=== PATIENT | female | born 1935 | race Caucasian/White ===

== ENCOUNTER 2016-12-15 19:49 | Observation (INO) ==
[2016-12-15] MEDS ORDERED: *HR* HYDROcodone/Acet 5/325 mg TABLET PO ONE (20:38)
--- NOTE | 2016-12-15 20:40 | Emergency Department Note ---
START Narrative - START START: I examined this patient and my medical decision-making was reviewed with the HEALTH CARE MARKETING SPECIALIST/PA/Advanced Practice Nurse/Resident Physician. I agree with the documented findings, disposition and treatment plan as described except to the extent set forth below. ED attending note: I saw this Patient with the emergency medicine resident Dr. Pickens. Please see a copy of his note for details of the H&P, evaluation, management and disposition of this emergency Department patient. We independently had [id number] contact with the patient. Briefly: A 81-year-old female with history of bilateral hip replacements presents with wheelchair after slip and fall about 5 PM at home using a walker. No loss of consciousness or syncope. Not on blood thinners. Complains of painful right hip but no hip irritability per psych no rotation or shortening noted. Getting analgesics and x-rays. Disposition pending. Patient stable
--- NOTE | 2016-12-15 20:44 | Emergency Department Note ---
Disposition Clinical Impression: Fracture, proximal femur Qualifiers: Encounter type: initial encounter Fracture type: closed Laterality: right Qualified Code(s): S72.001A - Fracture of unspecified part of neck of right femur, initial encounter for closed fracture Disposition: Admitted As Inpatient Condition: Good Referrals: NO,PCP [Primary Care Provider] - Forms: ED Satisfaction Letter Fall HPI - General Chief Complaint: ED Fall Stated Complaint: Fall / R Hip Pain Time Seen by Provider: 12/15/16 20:13 Source: patient Mode of arrival: wheelchair Limitations: physical limitation Nursing Notes Reviewed: Yes Vital Signs Reviewed: Yes - History of Present Illness HPI Narrative: 81-year-old female presents to the ER status post fall with a complaint of right hip pain Pt Subjective Complaint: fall Onset (ago): hour(s) (5 PM) Fall From: standing Fall Witnessed: no Place Fall Occurred: home Loss of Consciousness: none Prolonged Down Time?: no Symptoms Prior to Fall: none Context: tripped/slipped Location of injury: hip Location of injury - extremities: Right: hip Severity: moderate Quality: aching Associated symptoms (after fall): Reports: unable to walk. Denies: neck pain, numbness, weakness, abdominal pain - Related Data Home Medications Medication Instructions Recorded Confirmed Allopurinol [Zyloprim 100 MG] 100 mg PO DAILY 12/15/16 12/15/16 Aspirin Enteric Coated [Aspirin EC] 81 mg PO DAILY 12/15/16 12/15/16 Carvedilol 3.125 mg PO BID 12/15/16 12/15/16 ClonazePAM [Klonopin] 0.5 mg PO BID 12/15/16 12/15/16 Gabapentin [Neurontin] 600 mg PO TID 12/15/16 12/15/16 HYDROcodone/Acet 5/325 mg [[place] 1 tab PO Q6H PRN 12/15/16 12/15/16 5-325 mg] Insulin ASPART [Novolog Flexpen] 0 unit SQ TIDWM 12/15/16 12/15/16 Insulin DETEMIR [Levemir Flextouch] 0 unit SQ HS 12/15/16 12/15/16 Multivit-Minerals/Folic Acid 80 mcg PO DAILY 12/15/16 12/15/16 [Centrum Multigummies] Omeprazole [PriLOSEC] 20 mg PO DAILY 12/15/16 12/15/16 Pravastatin Sodium mg PO DAILY 12/15/16 Primidone [Mysoline] 50 mg PO BID 12/15/16 12/15/16 Probenecid [Benemid] 500 mg PO BID 12/15/16 12/15/16 Ticagrelor [Brilinta] 90 mg PO BID 12/15/16 12/15/16 Torsemide [Demadex] 20 mg PO DAILY 12/15/16 12/15/16 Venlafaxine HCl [Venlafaxine HCl 150 mg PO DAILY 12/15/16 12/15/16 ER] Allergies Allergy/AdvReac Type Severity Reaction Status Date / Time No Known Allergies Allergy Verified 12/15/16 20:11 All systems ED: reviewed and negative except as stated. Cardiovascular: Denies: chest pain Respiratory: Denies: dyspnea Gastrointestinal: Denies: abdominal pain Musculoskeletal: Denies: back pain, neck pain Neurological: Denies: weakness, numbness, paresthesias Fall PMH - Past Medical History Medical history: Reports: CHF, COPD, diabetes, hypertension, myocardial infarction Psychiatric history: Reports: depression - Social History Smoking Status: Never smoker Alcohol use: Reports: none Drug use: Reports: none Physical Exam - General Limitations: physical limitation General appearance: alert, in no apparent distress - Head Head exam: atraumatic, normocephalic, normal inspection - Eye Eye exam: Present: normal appearance - ENT ENT exam: normal exam - Neck Neck exam: Present: normal inspection - Chest Chest inspection: Present: normal inspection, symmetric chest wall rise - Respiratory Respiratory exam: Present: normal lung sounds bilaterally - Cardiovascular Cardiovascular exam: Present: regular rate, normal rhythm, normal heart sounds - Abdominal Exam Abdominal exam: Present: soft, Non-Tender. Absent: tenderness, rigidity - Extremities Exam Extremities exam: Present: normal inspection - Expanded Lower Extremity Exam Hip/Pelvis exam: Present: tenderness (Past palpation along the right lateral greater trochanter. No obvious gross deformity. No overlying ecchymosis or skin breakdown.) Upper leg exam: Present: normal inspection (She is able to internally and externally rotate the upper leg. However she is unable to flex the leg off the bed.) Knee exam: Present: normal inspection Lower leg exam: Present: normal inspection, full ROM Ankle exam: Present: normal inspection, full ROM Foot/toe exam: Present: normal inspection, full ROM Neurovascular/Tendon exam: Present: normal capillary refill, normal fine/light touch. Absent: pulse deficit, sensory deficit Gait: unable to bear weight - Neurological Exam Neurological exam: Present: alert, motor sensory deficit (Unable to flex the the right hip secondary to pain ) - Psychiatric Psychiatric exam: Present: normal affect, normal mood - Skin Skin exam: Present: warm, dry, intact, normal color Course Course Narrative: 81-year-old female history of hypertension, [place], bilateral hip replacements who presents to the ER with a chief complaint of hip pain status post fall. Patient reports she was at home and sustained a fall around 5 PM today. She walks with a walker and was leaning off to the right side when she fell. She denies loss of consciousness or head injury. Patient brought to the ED for evaluation. She currently denies numbness, tingling or paresthesias in the extremity. She is unable to flex the hip off the bed. She denies headaches, neck or back pain, chest or abdominal pain. She reports she took some Tylenol prior to arrival. No other complaints. Plan for this patient is to get x-ray series of the right hip and to get her pain under control with [place]. Disposition pending. - Reevaluation(s) Reevaluation #1: Discussed results of imaging with the patient and family. They report that she lives at home with her grandson but will be unable to care for her and she is unable to ambulate with this fracture. We will admit her to the hospital for further management. - Consultations Consultation #1: I discussed this patient with the on-call orthopedic surgeon. They report that this is a nonoperative fracture and that she may either be discharged if she can go home safely and follow up tomorrow with him in the office or if they are unable to care for her that she can be admitted to the hospital service and he will see her in the morning. Vital Signs Temperature 98.1 F 12/15/16 20:07 Pulse Rate 84 12/15/16 20:07 Respiratory Rate 18 12/15/16 20:07 Blood Pressure 144/79 12/15/16 20:07 O2 Sat by Pulse Oximetry 97 12/15/16 20:07 Temperature 98.1 F 12/15/16 20:07 Pulse Rate 84 12/15/16 20:07 Respiratory Rate 18 12/15/16 20:07 Blood Pressure 144/79 12/15/16 20:07 O2 Sat by Pulse Oximetry 97 12/15/16 20:07 Oxygen Delivery Oxygen Delivery Room Air Fall - [facility] Narrative Medical decision making narrative: 81-year-old female presents to the ER status post fall with right hip pain. Her x-rays here show a proximal femur fracture. Orthopedic surgery was contacted and report this is nonoperative however the patient is unable to walk or care for herself at home therefore she will be admitted and he will see her in consult in the morning. - Radiology Data Radiology results reviewed: Yes I reviewed the patient's radiology results. Hip X-Ray 12/15/16 20:37 IMPRESSION: Nondisplaced fracture proximal right femur marginating the hip arthroplasty component D/ / Inocente Hurst MD / Inocente Hurst MD Interpreting Provider: Inocente Hurst MD
[2016-12-16] MEDS ORDERED: Acetaminophen 325 MG TABLET PO PRN ×2 (01:24→02:25)
[2016-12-16] MEDS ORDERED: *HR* Morphine 2 MG/ML SYRINGE IVP PRN (01:24)
[2016-12-16] MEDS ORDERED: Ondansetron ODT 4 MG TAB.RAPDIS SL PRN (01:24)
[2016-12-16] MEDS ORDERED: Naloxone 0.4 MG/ML INJ IVP PRN (01:24)
[2016-12-16] MEDS ORDERED: *HR* Dextrose 50 % in Water (Syg) 50 ML SYRINGE IVP PRN (01:28)
[2016-12-16] MEDS ORDERED: Dextrose Gel 15 GM PO PRN ×2 (01:28)
[2016-12-16] MEDS ORDERED: D5% in Water 1,000 ML IV PRN (01:28)
[2016-12-16] MEDS ORDERED: Cholestyramine 4 GM POWD.PACK PO ONE ×2 (01:54→02:07)
[2016-12-16] MEDS ORDERED: *HR* Morphine 2 MG/ML SYRINGE ONE (02:07)
--- NOTE | 2016-12-16 02:34 | Internal Med History&Physical ---
<Sophie Tanner - Last Filed: 12/16/16 02:46> Date of Encounter: 12/16/16 Time of Encounter: 02:26 Assessment and Plan (1) Fracture, proximal femur Current visit: Yes Status: Acute Patient presents after ground level fall at home resulting in proximal femur fracture. X-ray showed a non-displaced right proximal femur fracture. One exam , motor and sensation grossly intact BL feet with palpable bilateral DP and PT pulses. Ortho consulted. This is a non-operable fracture. Patient has no help at home and is unable to take care of her self; family would like to discuss fpc care. 1. Consult placed to ortho 2. Pain management and supportive care 3. Consult to PT/OT 4. Consult to bilingual social worker Qualifiers: Encounter type: initial encounter Fracture type: closed Laterality: right Qualified Code(s): S72.001A - Fracture of unspecified part of neck of right femur, initial encounter for closed fracture (2) CHF (congestive heart failure) Current visit: Yes Status: Acute Patient with history of CHF on torsemide and carvedilol. Will continue home medications. 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 Will check glucose and put patient on sliding scale for insulin coverage. 1. Accucheck ACHS 2. Sliding scale TIDAC Qualifiers: Diabetes mellitus type: type 2 Diabetes mellitus complication status: with neurologic complications Diabetes mellitus complication detail: with unspecified neuropathy Diabetes mellitus assisted insulin use: with assisted use Qualified Code(s): E11.40 - Type 2 diabetes mellitus with diabetic neuropathy, unspecified; Z79.4 - joint terminal attack controller (current) use of insulin (4) Hx of myocardial infarction Current visit: Yes Status: Acute Patient with history of MD back in March 2016 on ASA and brilinta. Will continue home doses of antiplatelet medications. (5) DVT prophylaxis Current visit: Yes Status: Acute Heparin 5,000 Q8H for DVT prophylaxis. Internal Medicine - H&P: HPI Chief complaint: Fall at home Admitted From: Emergency Dept Plans for Post Hospital Care: Home History of present illness: Ms. Beasley is a 81 year old female with PMH of HTN, MD (March 2016), DM with diabetic neuropathy, COPD, CHF and hx of BL hip replacements. Patient brought to the ED after a ground level fall at home. She reports that she was using her walker to walk around her house as she normally dose. She then leaned to far to the right and fell on her right hip. She denies hitting her head or any loss of consciousness. Patient denies any preciptating symptoms including headache, dizziness/lightheadedness, shortnes of breath or chest pain. Currently patient reports pain in her right hip/leg. She denies any numbness or tingling of her feet. Remainder of ROS was negative. In the ED, patient was afebrile, vital signs within normal limits. X-ray showed a nondisplaced fracture of the proximal right femur. On-call orthopedist was consulted from the ED. He feels that the fracture is non- operative but agreed to consult - will see patient in the morning. On exam, patient is awake and alert, hard of hearing. Heart is regular rate and rhythm. Lungs clear to auscultation. Patient is able to wiggle bilateral toes and sensation is grossly intact. Bilateral DP and PT pulses palpable. Past Med Surg Social Fam HX - Past Medical History Medical history: arthritis, cancer, CHF, COPD, diabetes, hypertension, myocardial infarction Psychiatric history: anxiety, depression - Past Surgical History Surgical History: cholecystectomy, herniorrhaphy, hip replacement, hysterectomy - Social History Smoking Status: Never smoker Smokeless Tobacco Status: No Alcohol use: none Drug use: none - Family History Father Living Status: Age at : 69 Cause of : diabetes, cardiac Hx Family Cardiac Disorders: Yes Hx Family Endocrine Disorder: Yes (diabetic) Mother Living Status: Age at : 81 Cause of : ruptured bowel blockage Hx Family Endocrine Disorder: Yes (diabetes) Hx Family Reproductive Disorders: Yes (uterine ca) Internal Medicine - H&P: Meds Allopurinol [Zyloprim 100 MG] 100 mg PO DAILY 12/15/16 [History] Aspirin Enteric Coated [Aspirin EC] 81 mg PO DAILY 12/15/16 [History] Carvedilol 3.125 mg PO BID 12/15/16 [History] Cholestyramine [Cholestyramine] 1 PO HS 12/15/16 [History] ClonazePAM [Klonopin] 0.5 mg PO BID 12/15/16 [History] Gabapentin [Neurontin] 600 mg PO TID 12/15/16 [History] HYDROcodone/Acet 5/325 mg [[place] 5-325 mg] 1 tab PO Q6H PRN 12/15/16 [History] Insulin ASPART [Novolog Flexpen] 0 unit SQ TIDWM 12/15/16 [History] Insulin DETEMIR [Levemir Flextouch] 0 unit SQ HS 12/15/16 [History] Multivit-Minerals/Folic Acid [Centrum Multigummies] 80 mcg PO DAILY 12/15/16 [ History] Omeprazole [PriLOSEC] 20 mg PO DAILY 12/15/16 [History] Pravastatin Sodium mg PO DAILY 12/15/16 [History] Primidone [Mysoline] 50 mg PO BID 12/15/16 [History] Probenecid [Benemid] 500 mg PO BID 12/15/16 [History] Ticagrelor [Brilinta] 90 mg PO BID 12/15/16 [History] Torsemide [Demadex] 20 mg PO DAILY 12/15/16 [History] Venlafaxine HCl [Venlafaxine HCl ER] 150 mg PO DAILY 12/15/16 [History] Allergies No Known Allergies Allergy (Verified 12/15/16 20:11) All Systems PM: A 10-system review of systems was performed and is negative for pertinent findings except as documented above in the HPI. - Constitutional Constitutional: falls, no chills, no fever(s) - EENT Eyes: no change in vision - Cardiovascular Cardiovascular ROS IM: no chest pain, no irregular heart rhythm, no palpitations - Respiratory Respiratory: no dyspnea, no dyspnea on exertion, no wheezing - Gastrointestinal Gastrointestinal: no abdominal pain, no nausea, no vomiting - Genitourinary Genitourinary: no change in urinary stream, no dysuria - Musculoskeletal Musculoskeletal ROS IM: no numbness, no tingling Additional comments: right hip/leg pain - Neurological Neurological ROS: no confusion, no dizziness, no headache(s), no lack of coordination, no weakness - Constitutional Vitals: Temp Pulse Resp BP Pulse Ox 98.2 F 80 16 155/78 94 L 12/16/16 00:22 12/16/16 00:22 12/16/16 00:22 12/16/16 00:22 12/16/16 00:22 General appearance: Present: A&O X 3, pleasant, no acute distress, answers questions appropriately - Head Head exam: Present: atraumatic, normal inspection, normocephalic - Eye Eye exam: Present: normal appearance, PERRL - ENT ENT exam: Present: mucous membranes moist - Respiratory Respiratory exam: Present: CTAB. Absent: decreased breath sounds, respiratory distress - Cardiovascular Cardiovascular exam: Present: RRR - GI/Abdominal GI/Abdominal exam: Present: soft. Absent: distended, guarding, rebound, rigid, tenderness - Extremities Exam Extremities exam: Present: normal capillary refill, radial pulses palpable and symetrical. Absent: cyanotic, mottling - Neurological Exam Neurological exam: Present: alert, CN II-XII intact, oriented X3, no focal deficits <Monalisa Syed - Last Filed: 12/16/16 04:52> Date of Encounter: 12/16/16 Internal Medicine - H&P: HPI History of present illness: Ms. Beasley is a 81 year old female All Systems PM: A 10-system review of systems was performed and is negative for pertinent findings except as documented above in the HPI. - Constitutional Vitals: Temp Pulse Resp BP Pulse Ox 98.3 F 80 16 147/72 94 L 12/16/16 04:00 12/16/16 04:00 12/16/16 04:00 12/16/16 04:00 12/16/16 04:00 - Attending Attestation I performed a history and physical examination of the patient and discussed his management with the Resident/Puppet Master (Dr Tanner). I reviewed the residents note and agree with the documented findings and plan of care, with additions as below. 81 Y/F with h/o HTN, MD (March 2016), DM with diabetic neuropathy, COPD, CHF and h/o bilateral hip replacements - presented to the emergency department after a fall, without LOC. Reports pain at the right hip, which is 9/10 at the time of my evaluation. Imaging showed nondisplaced fracture of proximal right femur marginating the hip arthroplasty component. ER physician discussed with orthopedic surgeon Dr. Mayers, who recommends non-surgical management at this time and admission to the hospitalist service. O/E: Lungs clear to auscultation. Cardiac regular rate and rhythm. Tenderness at the right hip A/P: Fracture of right proximal femur: Orthopedic consultation, pain management. PT/OT consult; possible placement.
[2016-12-16] MEDS ORDERED: *HR* Heparin 5,000 UNIT/ML VIAL SQ SCH (03:00)
[2016-12-16 05:47] LABS: Hematocrit 34.1 % (35.3-44.9); Hemoglobin 11.5 g/dL (11.5-15.4); Mean Corpuscular HGB Conc 33.7 g/dL (31.6-35.5); Mean Corpuscular Hemoglobin 32.2 pg (28.0-33.3); Mean Corpuscular Volume 95.5 fL (83.0-100.0); Mean Platelet Volume 11.1 fL (9.4-12.4); Platelet Count 183 K/mcL (140-400); Red Blood Count 3.57 M/mcL (3.82-4.97); Red Cell Distribution Width 12.9 % (11.5-14.5)
[2016-12-16] MEDS: *HR* HYDROcodone/Acet 5/325 mg TABLET PO PRN ×3 (05:51→16:45)
[2016-12-16 05:56] LABS: INR 1.1; Prothrombin Time 11.8 Seconds (9.4-12.1)
[2016-12-16 06:16] LABS: Alanine Aminotransferase 29 Units/L (0-55); Albumin/Globulin Ratio 0.8 (1.1-2.2); Alkaline Phosphatase 159 Units/L (38-126); Aspartate Amino Transferase 25 Units/L (5-34); BUN/Creatinine Ratio 19 (6-26); Bilirubin,Total 0.4 mg/dL (0.2-1.2); Blood Urea Nitrogen 19 mg/dL (7-20); Calcium 9.4 mg/dL (8.6-10.8); Carbon Dioxide 21 mEq/L (19-29); Chloride 105 mEq/L (98-109); Glucose 168 mg/dL (70-99); Osmolality,Calculated 292 (280-300); Potassium 3.9 mEq/L (3.5-4.5); Sodium 138 mEq/L (136-145); eGFR For African Americans > 60 (> 60); eGFR For Non-African Americans 53 (> 60)
--- NOTE | 2016-12-16 07:53 | Orthopedic Consult Note ---
Date of Encounter: 12/16/16 Time of Encounter: 07:51 Assessment and Plan (1) Fracture, proximal femur Current Visit: Yes Status: Acute This patient is an 81-year-old female with a history of bilateral hip replacements. She had a fall yesterday and sustained a nondisplaced right greater trochanteric fracture around her well fixed stem. I did discuss the diagnosis in detail as well as treatment options. My recommendation at this point is for nonweightbearing to the right lower extremity for about 4-6 weeks with careful radiographic follow-up and nonoperative management. My suspicion is that the fracture will heal without displacement, however should there be displacement she may end up requiring open reduction and internal fixation of the greater trochanter. She is orthopedically stable for discharge. My recommendation is to have physical therapy and occupational therapy evaluate her here in the hospital to discuss placement, as she may need retirement facility with therapy. Follow-up with me in the office in one week for radiographic reevaluation. Qualifiers: Encounter type: initial encounter Fracture type: closed Laterality: right Qualified Code(s): S72.001A - Fracture of unspecified part of neck of right femur, initial encounter for closed fracture History of Present Illness HPI: Ms. Beasley is a 81 year old female who has a history of bilateral total hip replacements done by an orthopedist at [facility]. She had been doing reasonably well but yesterday was ambulating with her walker when she sustained a fall directly on her right side. She is found to have a nondisplaced greater trochanteric fracture around her well fixed stem. She was admitted for placement. On my evaluation today she is complaining of isolated pain to the right proximal femoral region. She denies any headaches, neck pain , chest pain, abdominal pain, lateral proximity pain, and left largely pain. No numbness, tingling, or any other associated signs or symptoms. Movement makes the pain worse and rest makes it better. No other modifying factors. The pain is quite well-controlled when she is not moving. Past Med Surg Social Fam HX - Past Medical History Medical history: arthritis, cancer, CHF, COPD, diabetes, hypertension, myocardial infarction Psychiatric history: anxiety, depression - Past Surgical History Surgical History: cholecystectomy, herniorrhaphy, hip replacement, hysterectomy - Social History Smoking Status: Never smoker Smokeless Tobacco Status: No Alcohol use: none Drug use: none - Family History Father Living Status: Age at : 69 Cause of : diabetes, cardiac Hx Family Cardiac Disorders: Yes Hx Family Endocrine Disorder: Yes (diabetic) Mother Living Status: Age at : 81 Cause of : ruptured bowel blockage Hx Family Endocrine Disorder: Yes (diabetes) Hx Family Reproductive Disorders: Yes (uterine ca) Medications and Allergies Allopurinol [Zyloprim 100 MG] 100 mg PO DAILY 12/15/16 [History] Aspirin Enteric Coated [Aspirin EC] 81 mg PO DAILY 12/15/16 [History] Carvedilol 3.125 mg PO BID 12/15/16 [History] Cholestyramine [Cholestyramine] 1 PO HS 12/15/16 [History] ClonazePAM [Klonopin] 0.5 mg PO BID 12/15/16 [History] Gabapentin [Neurontin] 600 mg PO TID 12/15/16 [History] HYDROcodone/Acet 5/325 mg [[place] 5-325 mg] 1 tab PO Q6H PRN 12/15/16 [History] Insulin ASPART [Novolog Flexpen] 0 unit SQ TIDWM 12/15/16 [History] Insulin DETEMIR [Levemir Flextouch] 0 unit SQ HS 12/15/16 [History] Multivit-Minerals/Folic Acid [Centrum Multigummies] 80 mcg PO DAILY 12/15/16 [ History] Omeprazole [PriLOSEC] 20 mg PO DAILY 12/15/16 [History] Pravastatin Sodium mg PO DAILY 12/15/16 [History] Primidone [Mysoline] 50 mg PO BID 12/15/16 [History] Probenecid [Benemid] 500 mg PO BID 12/15/16 [History] Ticagrelor [Brilinta] 90 mg PO BID 12/15/16 [History] Torsemide [Demadex] 20 mg PO DAILY 12/15/16 [History] Venlafaxine HCl [Venlafaxine HCl ER] 150 mg PO DAILY 12/15/16 [History] Allergies No Known Allergies Allergy (Verified 12/15/16 20:11) All Systems Reviewed: Constitutional and musculoskeletal systems were reviewed and are negative unless otherwise stated in history of present illness. Physical Exam - Constitutional Vitals: Temp Pulse Resp BP Pulse Ox 98.5 F 84 16 144/76 96 12/16/16 06:33 12/16/16 06:33 12/16/16 06:33 12/16/16 06:33 12/16/16 06:33 Constitutional -Vitals reviewed -The patient is well developed and well nourished. -Mood is pleasant. -The patient is well groomed. Psychiatric -The patient is fully alert and oriented x 3. Respiratory: -Respiratory effort normal Abdomen: -Soft abdomen -Non tender -Non distended: Left upper extremity: -No deformities. The overlying skin is intact. No obvious signs of acute trauma. -No tenderness to palpation throughout. -No significant pain with passive motion of the shoulder, elbow, wrist, and fingers within the limits of the bed. -Able to make an "OK" sign, cross the index and long fingers, and extend the thumb. -Sensation grossly intact to light touch throughout the median, radial, and ulnar distributions. -Radial pulse is present; Fingers have good capillary refill. Right upper extremity: -No deformities. The overlying skin is intact. No obvious signs of acute trauma. -No tenderness to palpation throughout. -No significant pain with passive motion of the shoulder, elbow, wrist, and fingers within the limits of the bed. -Able to make an "OK" sign, cross the index and long fingers, and extend the thumb. -Sensation grossly intact to light touch throughout the median, radial, and ulnar distributions. -Radial pulse is present; Fingers have good capillary refill. Left lower extremity: -No deformities. The overlying skin is intact. No obvious signs of acute trauma. -No tenderness to palpation throughout. -No pain with passive motion of the hip, knee, ankle, and toes within the limits of the bed. -No pain with axial loading of the thigh. -Able to dorsiflex and plantarflex the ankle and toes. -Sensation is grossly intact to light touch throughout the sural, saphenous, superficial peroneal, and deep peroneal distributions. -Toes have good capillary refill. Right lower extremity: -No deformities. The overlying skin is intact. No obvious signs of acute trauma. -Tenderness over the greater trochanteric region. -Mild pain in the proximal femur with movement of the hip. -No pain with axial loading of the thigh. -Able to dorsiflex and plantarflex the ankle and toes. -Sensation is grossly intact to light touch throughout the sural, saphenous, superficial peroneal, and deep peroneal distributions. -Toes have good capillary refill. Results - Labs Result Diagrams: 12/16/16 04:59 12/16/16 04:59 Labs: Abnormal lab results RBC 3.57 M/mcL (3.82-4.97) L 12/16/16 04:59 Hct 34.1 % (35.3-44.9) L 12/16/16 04:59 Est GFR (Non-Af Amer) 53 (> 60) L 12/16/16 04:59 Glucose 168 mg/dL (70-99) H 12/16/16 04:59 Alkaline Phosphatase 159 Units/L (38-126) H 12/16/16 04:59 Albumin 3.0 g/dL (3.5-5.0) L 12/16/16 04:59 Globulin 4.0 g/dL (2.4-3.5) H 12/16/16 04:59 Albumin/Globulin Ratio 0.8 (1.1-2.2) L 12/16/16 04:59 H & H 12/16/16 Range/Units 04:59 Hgb 11.5 (11.5-15.4) g/dL Hct 34.1 L (35.3-44.9) % All other labs normal. - Diagnostic results Hip x-ray: image reviewed (X-rays of the right hip show a nondisplaced greater trochanteric fracture around a well fixed total hip stem.) Consult Discharge Plan - Plan Referrals: NO,PCP [Primary Care Provider] -
[2016-12-16] MEDS: Insulin LISPRO 300 UNITS/3 ML VIAL SQ SCH ×2 (08:12→12:01)
[2016-12-16] MEDS ORDERED: *HR* Ticagrelor 90 MG TABLET PO SCH (09:00)
[2016-12-16] MEDS ORDERED: Venlafaxine XR (24 HR) 150 MG CAP.ER.24H PO SCH (09:00)
[2016-12-16] MEDS ORDERED: Gabapentin 300 MG CAPSULE PO SCH (09:00)
[2016-12-16] MEDS ORDERED: Multivit/Ca/Min/Fe/FA 1 TAB TABLET PO SCH (09:00)
[2016-12-16] MEDS ORDERED: Torsemide 20 MG TABLET PO SCH (09:00)
[2016-12-16] MEDS ORDERED: Aspirin Enteric Coated 81 MG Tablet PO SCH (09:00)
[2016-12-16] MEDS ORDERED: Primidone 50 MG TABLET PO SCH (09:00)
[2016-12-16] MEDS ORDERED: clonazePAM 0.5 MG TABLET PO SCH (09:00)
--- NOTE | 2016-12-16 10:14 | Event Note ---
Date of Encounter: 12/16/16 Time of Encounter: 10:15 Patient seen and examined. Patient sitting on chair. Discussed with staff. Remove Daniels catheter. Continue physical therapy and occupational therapy. Social service consulted for possible need for placement. Awaiting input from physical therapy and occupational therapy. Check postvoiding residual of 4 hours after removal of Daniels catheterization. Possible discharge next 24-hour
--- NOTE | 2016-12-16 13:53 | Discharge Summary ---
Date of Encounter: 12/16/16 Time of Encounter: 08:30 - Discharge Diagnosis (1) Diabetes Priority: Secondary Status: Acute Qualifiers: Diabetes mellitus type: type 2 Diabetes mellitus complication status: with neurologic complications Diabetes mellitus complication detail: with unspecified neuropathy Diabetes mellitus moth exterminator insulin use: with penitentiary use Qualified Code(s): E11.40 - Type 2 diabetes mellitus with diabetic neuropathy, unspecified; Z79.4 - terminal clerk (current) use of insulin (2) Fracture, proximal femur Priority: Primary Status: Acute Qualifiers: Encounter type: initial encounter Fracture type: closed Laterality: right Qualified Code(s): S72.001A - Fracture of unspecified part of neck of right femur, initial encounter for closed fracture (3) Hx of myocardial infarction Priority: Secondary Status: Acute (4) Polypharmacy Priority: Secondary Status: Acute (5) Fall Priority: Primary Status: Acute Qualifiers: Encounter type: initial encounter Qualified Code(s): W19.XXXA - Unspecified fall, initial encounter - Discharge Medications Prescriptions: HYDROcodone/Acet 5/325 mg [[place] 5-325 mg] 1 tab PO Q6H PRN #60 tablet PRN Reason: Moderate Pain (4-6) Home Medications: Allopurinol [Zyloprim 100 MG] 100 mg PO DAILY 12/15/16 [History] Aspirin Enteric Coated [Aspirin EC] 81 mg PO DAILY 12/15/16 [History] Carvedilol 3.125 mg PO BID 12/15/16 [History] Cholestyramine 1 PO HS 12/15/16 [History] Gabapentin [Neurontin] 600 mg PO TID 12/15/16 [History] HYDROcodone/Acet 5/325 mg [[place] 5-325 mg] 1 tab PO Q6H PRN 12/15/16 [History] Insulin ASPART [Novolog Flexpen] 0 unit SQ TIDWM 12/15/16 [History] Insulin DETEMIR [Levemir Flextouch] 0 unit SQ HS 12/15/16 [History] Multivit-Minerals/Folic Acid [Centrum Multigummies] 80 mcg PO DAILY 12/15/16 [ History] Omeprazole [PriLOSEC] 20 mg PO DAILY 12/15/16 [History] Pravastatin Sodium mg PO DAILY 12/15/16 [History] Primidone [Mysoline] 50 mg PO BID 12/15/16 [History] Probenecid [Benemid] 500 mg PO BID 12/15/16 [History] Ticagrelor [Brilinta] 90 mg PO BID 12/15/16 [History] Torsemide [Demadex] 20 mg PO DAILY 12/15/16 [History] Venlafaxine HCl [Venlafaxine HCl ER] 150 mg PO DAILY 12/15/16 [History] ClonazePAM [Klonopin] 0.5 mg PO HS #30 tab 12/16/16 [Rx] HYDROcodone/Acet 5/325 mg [[place] 5-325 mg] 1 tab PO Q6H PRN #60 tablet 12/16/16 [Rx] Allergies/Adverse Reactions: Allergies No Known Allergies Allergy (Verified 12/15/16 20:11) Date of admission: 12/15/16 22:37 Primary care physician: PCP NO Consults: 12/16/16 01:25 Consult to Occupational Therapy [CONS] Routine Comment: NWB to RLE Consult to Physical Therapy [CONS] Routine Comment: NWB to RLE 12/16/16 01:26 Consult to Remotely Operated Vehicle [CONS] Routine Reason for SW Consult: Discharge planning 12/16/16 02:41 Consult to Orthopedic Surgery [CONS] Routine Consulting Provider: [facility] Reason for Consult: Right Femur Fracture Call Completed: Yes Discharging clinician: Karuna Aggarwal - Patient Status Disposition: Transfer SNF Condition: Good Functional capacity at discharge: uses cane/walker Overall status at discharge: patient is progressing back to baseline - Discharge Instructions Follow Up With: NO,PCP [Primary Care Provider] - (Follow-up with orthopedics as scheduled) Panda Silverio MD [Partnered Physician] - (December AT 10:45am) - Diet and Activity Activity: ambulate only with your walker Diet: advance to your usual diet Hospital course: Ms. Beasley is a 81 year old female with PMH of HTN, ME (March 2016), DM with diabetic neuropathy, COPD, CHF and hx of BL hip replacements. Patient brought to the ED after a ground level fall at home. She reported that she was using her walker to walk around her house . She then leaned to far to the right and fell on her right hip. She denies hitting her head or any loss of consciousness. Patient denies any precipitating symptoms including headache, dizziness/lightheadedness, shortens of breath or chest pain. Patient was complaining of left leg and hip pain, no weakness, no paresthesia. X-ray showed a nondisplaced fracture of the proximal right femur. Orthopedic was consulted , He stated fracture is non-operative . Patient denied any chest pain any shortness of breath. She was up in chair. Ambulating with physical therapy with difficulty because pain. Physical therapy recommended rehabilitation. Patient was transferred for rehabilitation for pain control and balance training. Vital signs stable. H&H stable. Electrolytes within normal limit. Plan discussed with patient and daughter at bed side. I had long discussion with him about risk of Klonopin which can cause recurrent fall. Agreed to cut back on Klonopin. she stated she had multiple fall at home. Discussed with her need to follow up with family doctor psychiatry may consider tapering down on Klonopin as directed - Time Spent with Patient Total time spent providing and/or coordinating discharge services: Greater than 30 minutes - Constitutional Vitals: Temp Pulse Resp BP Pulse Ox 98.8 F 91 18 147/81 96 12/16/16 10:43 12/16/16 10:43 12/16/16 10:43 12/16/16 10:43 12/16/16 10:43 General appearance: Present: A&O X 3, pleasant, no acute distress, answers questions appropriately
--- NOTE | 2016-12-16 13:57 | Physician Discharge Referral ---
ExtendedCare Referral Info Transfer To: [email or web address] Provider in Charge after Transfer: PCP Institutional Level of Care: Skilled - Diagnosis (1) Diabetes Priority: Secondary Status: Acute (2) Fracture, proximal femur Priority: Primary Status: Acute (3) Hx of myocardial infarction Priority: Secondary Status: Acute (4) Physical deconditioning Priority: Primary Status: Acute (5) Congestive heart failure Priority: Secondary Status: Acute - Transfer Medications Prescriptions: HYDROcodone/Acet 5/325 mg [[place] 5-325 mg] 1 tab PO Q6H PRN #60 tablet PRN Reason: Moderate Pain (4-6) Home Medications: Allopurinol [Zyloprim 100 MG] 100 mg PO DAILY 12/15/16 [History] Aspirin Enteric Coated [Aspirin EC] 81 mg PO DAILY 12/15/16 [History] Carvedilol 3.125 mg PO BID 12/15/16 [History] Cholestyramine 1 PO HS 12/15/16 [History] Gabapentin [Neurontin] 600 mg PO TID 12/15/16 [History] HYDROcodone/Acet 5/325 mg [[place] 5-325 mg] 1 tab PO Q6H PRN 12/15/16 [History] Insulin ASPART [Novolog Flexpen] 0 unit SQ TIDWM 12/15/16 [History] Insulin DETEMIR [Levemir Flextouch] 0 unit SQ HS 12/15/16 [History] Multivit-Minerals/Folic Acid [Centrum Multigummies] 80 mcg PO DAILY 12/15/16 [ History] Omeprazole [PriLOSEC] 20 mg PO DAILY 12/15/16 [History] Pravastatin Sodium mg PO DAILY 12/15/16 [History] Primidone [Mysoline] 50 mg PO BID 12/15/16 [History] Probenecid [Benemid] 500 mg PO BID 12/15/16 [History] Ticagrelor [Brilinta] 90 mg PO BID 12/15/16 [History] Torsemide [Demadex] 20 mg PO DAILY 12/15/16 [History] Venlafaxine HCl [Venlafaxine HCl ER] 150 mg PO DAILY 12/15/16 [History] ClonazePAM [Klonopin] 0.5 mg PO HS #30 tab 12/16/16 [Rx] HYDROcodone/Acet 5/325 mg [[place] 5-325 mg] 1 tab PO Q6H PRN #60 tablet 12/16/16 [Rx] Allergies/Adverse Reactions: Allergies No Known Allergies Allergy (Verified 12/15/16 20:11) - Respiratory Orders Smoking Cessation: Smoking cessation has been advised. For more information, call the [place] Tobacco Quit Line at 7-211-KUDV-NOW. - Mobility Orders Ambulate - Rehabiliation Orders Rehab Orders: Evaluation for Physical Therapy, Evaluation for Occupational Therapy - Treatments Fleet enema rectally every other day PRN cleansing purposes - Diet Orders Cardiac CERTIFICATION: I certify that the transfer of the above named patient to an Extended Care Facility is necessary for the continuing treatment of the diagnosis listed. The above information is true and accurate reflection of patient's current condition. Confidential - Redisclosure prohibited without a patient's written consent.
[2016-12-16 15:52] VITALS: BP 137/84
[2016-12-17] MEDS ORDERED: clonazePAM 0.5 MG TABLET PO SCH (09:00)
== END 2016-12-16 16:50 ==
LOC: 3NENU 19:49 → EMEROO 19:49 → 3NENU 23:14
PROVIDERS: ADMIT Family Medicine; ATTEND Family Medicine

== ENCOUNTER 2017-07-10 14:54 | Observation (INO) ==
[2017-07-10] MEDS ORDERED: *HR* HYDROcodone/Acet 5/325 mg TABLET PO ONE (15:22)
--- NOTE | 2017-07-10 15:30 | Emergency Department Note ---
Disposition Clinical Impression: Hypoxia Fall Qualifiers: Encounter type: initial encounter Qualified Code(s): W19.XXXA - Unspecified fall, initial encounter Disposition: Admitted As Inpatient Condition: Good Referrals: NONE,PCP [Non-Partnered Physician] - Forms: ED Satisfaction Letter Fall HPI - General Chief Complaint: ED Fall Stated Complaint: Fall Time Seen by Provider: 07/10/17 14:56 Source: patient, EMS Mode of arrival: EMS Limitations: no limitations Nursing Notes Reviewed: Yes Vital Signs Reviewed: Yes - History of Present Illness HPI Narrative: 81-year-old female presents to the ER status post fall. Patient was seen by orthopedics this morning for discussion of possible kyphoplasty for thoracic spine compression fractures. Reports she went to the bathroom and then fell backwards. States that she has fallen multiple times in the past. States she fell back and landed on the floor. No loss of consciousness. No chest pain or shortness of breath. No other prodromal symptoms. She states that she did fracture her pelvis in November and was treated nonoperatively. Patient was placed in C-spine immobilization and brought for evaluation. Her current complaints are upper cervical spine tenderness as well as bilateral hip pain. Denies numbness tingling or paresthesias. No other complaints. Pt Subjective Complaint: fall Onset (ago): [employer] Fall From: standing Fall Witnessed: no Place Fall Occurred: other Loss of Consciousness: none Prolonged Down Time?: no Symptoms Prior to Fall: none Context: tripped/slipped Location of injury: neck, hip Location of injury - extremities: Bilateral: hip Severity: mild Quality: aching Associated symptoms (after fall): Reports: neck pain. Denies: headache, numbness, weakness, chest pain, shortness of breath, lightheaded - Related Data Home Medications Medication Instructions Recorded Confirmed Allopurinol [Zyloprim 100 MG] 100 mg PO DAILY 12/15/16 12/15/16 Aspirin Enteric Coated [Aspirin EC] 81 mg PO DAILY 12/15/16 12/15/16 Carvedilol 3.125 mg PO BID 12/15/16 12/15/16 Cholestyramine 1 PO HS 12/15/16 Gabapentin [Neurontin] 600 mg PO TID 12/15/16 12/15/16 HYDROcodone/Acet 5/325 mg [[place] 1 tab PO Q6H PRN 12/15/16 12/15/16 5-325 mg] Insulin ASPART [Novolog Flexpen] 0 unit SQ TIDWM 12/15/16 12/15/16 Insulin DETEMIR [Levemir Flextouch] 0 unit SQ HS 12/15/16 12/15/16 Multivit-Minerals/Folic Acid 80 mcg PO DAILY 12/15/16 12/15/16 [Centrum Multigummies] Omeprazole [PriLOSEC] 20 mg PO DAILY 12/15/16 12/15/16 Pravastatin Sodium mg PO DAILY 12/15/16 Primidone [Mysoline] 50 mg PO BID 12/15/16 12/15/16 Probenecid [Benemid] 500 mg PO BID 12/15/16 12/15/16 Ticagrelor [Brilinta] 90 mg PO BID 12/15/16 12/15/16 Torsemide [Demadex] 20 mg PO DAILY 12/15/16 12/15/16 Venlafaxine HCl [Venlafaxine HCl 150 mg PO DAILY 12/15/16 12/15/16 ER] Previous Rx's Medication Instructions Recorded HYDROcodone/Acet 5/325 mg [[place] 1 tab PO Q6H PRN #60 tablet 12/16/16 5-325 mg] clonazePAM [Klonopin] 0.5 mg PO HS #30 tab 12/16/16 Allergies Allergy/AdvReac Type Severity Reaction Status Date / Time morphine AdvReac See Verified 07/10/17 15:10 Comments All systems ED: reviewed and negative except as stated. Cardiovascular: Denies: chest pain Respiratory: Denies: dyspnea Gastrointestinal: Denies: abdominal pain Musculoskeletal: Reports: neck pain. Denies: back pain Neurological: Reports: headache. Denies: numbness, paresthesias Fall PMH - Past Medical History Medical history: Reports: arthritis, cancer, CHF, COPD, diabetes, hypertension, myocardial infarction Surgical history: Reports: cholecystectomy, herniorrhaphy, hip replacement, hysterectomy Psychiatric history: Reports: anxiety, depression - Social History Smoking Status: Never smoker Alcohol use: Reports: none Drug use: Reports: none Physical Exam - General Limitations: no limitations General appearance: alert, in no apparent distress - Head Head exam: atraumatic, normocephalic, normal inspection - Eye Eye exam: Present: normal appearance, EOMI - ENT ENT exam: normal exam - Neck Neck exam: Present: normal inspection, tenderness (Patient has upper cervical spine tenderness to palpation.) - Chest Chest inspection: Present: normal inspection, symmetric chest wall rise - Respiratory Respiratory exam: Present: normal lung sounds bilaterally - Cardiovascular Cardiovascular exam: Present: regular rate, normal rhythm, normal heart sounds - Abdominal Exam Abdominal exam: Present: soft, Non-Tender. Absent: tenderness, distention, rigidity - Extremities Exam Extremities exam: Present: normal inspection, full ROM - Expanded Upper Extremity Exam Shoulder exam: Present: normal inspection, full ROM Arm exam: Present: normal inspection, full ROM Elbow exam: Present: normal inspection, full ROM Forearm/Wrist exam: Present: normal inspection, full ROM Hand exam: Present: normal inspection, full ROM - Expanded Lower Extremity Exam Hip/Pelvis exam: Present: normal inspection, full ROM, tenderness (Patient has bilateral tenderness to palpation over the ASIS.) Upper leg exam: Present: normal inspection, full ROM Knee exam: Present: normal inspection, full ROM Lower leg exam: Present: normal inspection, full ROM Ankle exam: Present: normal inspection, full ROM Foot/toe exam: Present: normal inspection, full ROM Neurovascular/Tendon exam: Absent: motor deficit, sensory deficit - Neurological Exam Neurological exam: Present: alert, other (GCS 15. Nonfocal neurologic exam. Moves all extremities equally.) - Psychiatric Psychiatric exam: Present: normal affect, normal mood - Skin Skin exam: Present: warm, dry, intact, normal color Course Course Narrative: Patient seen and examined. In C-spine immobilization. We will obtain CTs of the head and cervical spine as well as a pelvis x-ray. Patient provided with [employer] here. Disposition pending imaging. - Reevaluation(s) Reevaluation #1: Discussed results of imaging with the patient. We will ambulate her here with pulse oximetry. Reevaluation #2: Patient did desat into the 80s while ambulating. Does report a history of COPD but does not wear oxygen at home. We will get labs and EKG and chest x-ray and admit to the hospitalist. Vital Signs Temperature 98.3 F 07/10/17 15:03 Pulse Rate 76 07/10/17 15:03 Respiratory Rate 18 07/10/17 15:03 Blood Pressure 170/84 07/10/17 15:03 O2 Sat by Pulse Oximetry 98 09/18/17 15:03 Temperature 98.3 F 07/10/17 15:03 Pulse Rate 76 07/10/17 15:50 Respiratory Rate 16 07/10/17 15:50 Blood Pressure 166/73 07/10/17 15:50 O2 Sat by Pulse Oximetry 97 07/10/17 15:50 Oxygen Delivery Oxygen Delivery Room Air Fall - MDM Narrative Medical decision making narrative: 81-year-old female presents to the ER due to mechanical fall at the bone and joint [place]. She is nonfocal here. Head CT, cervical spine and pelvis x-ray were all normal. Oral ambulating here in the department she had desaturation into the 80s. Labs and imaging are unremarkable with the exception of a slightly elevated BNP. Patient admitted to the hospitalist service for hypoxia. - Lab Data Lab results reviewed: Yes I reviewed the patient's lab results. Result diagrams: 07/10/17 17:18 07/10/17 17:18 Lab Results 07/10/17 07/10/17 07/10/17 Range/Units 17:18 17:18 17:18 WBC 7.7 (4.3-11.1) K/mcL RBC 3.85 (3.82-4.97) M/mcL Hgb 11.4 L (11.5-15.4) g/dL Hct 35.9 (35.3-44.9) % MCV 93.2 (83.0-100.0) fL MCH 29.6 (28.0-33.3) pg MCHC 31.8 (31.6-35.5) g/dL RDW 14.5 (11.5-14.5) % Plt Count 237 (140-400) K/mcL MPV 10.6 (9.4-12.4) fL Immature Gran % 0.3 (0-4) % Seg Neutrophils % 52.1 % Lymphocytes % 35.8 % Monocytes % 9.7 % Eosinophils % 1.8 % Basophils % 0.3 % Neutrophils # 4.0 (1.6-8.9) K/mcL Lymphocytes # 2.7 (0.6-4.6) K/mcL Monocytes # 0.7 (0.0-1.3) K/mcL Eosinophils # 0.1 (0.0-0.6) K/mcL Basophils # 0.0 (0.0-0.2) K/mcL Sodium 140 (136-145) mEq/L Potassium 4.5 (3.5-4.5) mEq/L Chloride 108 (98-109) mEq/L Carbon Dioxide 24 (19-29) mEq/L BUN 28 H (7-20) mg/dL Creatinine 1.25 H (0.57-1.11) mg/dL Est GFR ( Amer) 50 L (> 60) Est GFR (Non-Af Amer) 41 L (> 60) BUN/Creatinine Ratio 22 (6-26) Glucose 79 (70-99) mg/dL Calculated Osmolality 294 (280-300) Calcium 10.8 (8.6-10.8) mg/dL Troponin I 0.03 (0-0.03) ng/mL B-Natriuretic Peptide (0-100) pg/mL 07/10/17 Range/Units 17:18 WBC (4.3-11.1) K/mcL RBC (3.82-4.97) M/mcL Hgb (11.5-15.4) g/dL Hct (35.3-44.9) % MCV (83.0-100.0) fL MCH (28.0-33.3) pg MCHC (31.6-35.5) g/dL RDW (11.5-14.5) % Plt Count (140-400) K/mcL MPV (9.4-12.4) fL Immature Gran % (0-4) % Seg Neutrophils % % Lymphocytes % % Monocytes % % Eosinophils % % Basophils % % Neutrophils # (1.6-8.9) K/mcL Lymphocytes # (0.6-4.6) K/mcL Monocytes # (0.0-1.3) K/mcL Eosinophils # (0.0-0.6) K/mcL Basophils # (0.0-0.2) K/mcL Sodium (136-145) mEq/L Potassium (3.5-4.5) mEq/L Chloride (98-109) mEq/L Carbon Dioxide (19-29) mEq/L BUN (7-20) mg/dL Creatinine (0.57-1.11) mg/dL Est GFR ( Amer) (> 60) Est GFR (Non-Af Amer) (> 60) BUN/Creatinine Ratio (6-26) Glucose (70-99) mg/dL Calculated Osmolality (280-300) Calcium (8.6-10.8) mg/dL Troponin I (0-0.03) ng/mL B-Natriuretic Peptide 530 H (0-100) pg/mL - Radiology Data Radiology results reviewed: Yes I reviewed the patient's radiology results. Cervical Spine CT 07/10/17 15:22 IMPRESSION: No acute abnormality of the cervical spine. D/ / Isidro Isabel MD / Isidro Isabel MD Interpreting Provider: Isidro Isabel MD Head CT 07/10/17 15:22 IMPRESSION: No acute intracranial abnormality. D/ / Mike Abraham MD / Mike Abraham MD Interpreting Provider: Mike Abraham MD Pelvis X-Ray 07/10/17 15:22 IMPRESSION: No acute abnormality identified D/ / Srikanth Campos MD / Srikanth Campos MD Interpreting Provider: Srikanth Campos MD - EKG Data EKG attestation: Yes I reviewed and interpreted this EKG. EKG results narrative: EKG demonstrates sinus rhythm with a rate of 81 bpm. Left axis deviation. Normal intervals. No gross ST elevations or depressions. No acute ischemic findings. S.B.A.R. - S.B.A.R. Situation: Demographics, MOA Background: Presenting Complaint, Relevant PMH, Meds, & Allergies Assessment: Vital Signs, Course and respsone to treatment, Exam Concerns, Patient/Family Expectation, Pertinant Lab Results, Outstanding Labs Recommendation: Barrier(s) to disposition, Recommendation based on pending studies, treatments, or consults S.B.A.Jessi Report Given to: Yoel Stover Repor Time: 18:50 Attestation Statement - Attestation Attestation: I examined this patient and my medical decision-making was reviewed with the Resident Physician. I agree with the documented findings, disposition and treatment plan as described except to the extent set forth below. Patient to the ED after a fall. Patient had a fall while she was here for an appointment. Complaining of neck pain. On examination she is awake and alert. Arrived in a c-collar by EMS. Moving all extremities. Neurologically intact. Plan. The patient had CT imaging that was unremarkable for any cervical spine fracture or intracranial hemorrhage. Patient was ambulated. Patient's oxygen saturation drops to 80% with ambulation. Likely the cause of her fall. Chest x-ray and cardiac workup. Will admit.
[2017-07-10 17:26] LABS: Basophils % 0.3 %; Eosinophils # 0.1 K/mcL (0.0-0.6); Eosinophils % 1.8 %; Hematocrit 35.9 % (35.3-44.9); Hemoglobin 11.4 g/dL (11.5-15.4); Immature Granulocytes % 0.3 % (0-4); Lymphocytes # 2.7 K/mcL (0.6-4.6); Lymphocytes % 35.8 %; Mean Corpuscular HGB Conc 31.8 g/dL (31.6-35.5); Mean Corpuscular Hemoglobin 29.6 pg (28.0-33.3); Mean Corpuscular Volume 93.2 fL (83.0-100.0); Mean Platelet Volume 10.6 fL (9.4-12.4); Monocytes # 0.7 K/mcL (0.0-1.3); Monocytes % 9.7 %; Platelet Count 237 K/mcL (140-400); Red Blood Count 3.85 M/mcL (3.82-4.97); Red Cell Distribution Width 14.5 % (11.5-14.5); Segmented Neutrophils % 52.1 %
[2017-07-10 17:42] LABS: Calcium 10.8 mg/dL (8.6-10.8); Potassium 4.5 mEq/L (3.5-4.5)
[2017-07-10] MEDS ORDERED: Ipratropium/Albuterol Neb 3 ML IH ONE (18:19)
[2017-07-10] MEDS ORDERED: Naloxone 0.4 MG/ML INJ IVP PRN (20:33)
[2017-07-10] MEDS ORDERED: Acetaminophen 325 MG TABLET PO PRN (20:33)
[2017-07-10] MEDS ORDERED: Ondansetron 4 MG/2 ML VIAL IVP PRN (20:33)
[2017-07-10] MEDS ORDERED: *HR* Dextrose 50 % in Water (Syg) 50 ML SYRINGE IVP PRN (20:39)
[2017-07-10] MEDS ORDERED: Dextrose Gel 15 GM PO PRN ×2 (20:39)
[2017-07-10] MEDS ORDERED: D5% in Water 1,000 ML IVC PRN (20:39)
--- NOTE | 2017-07-10 20:40 | Internal Med History&Physical ---
Date of Encounter: 07/10/17 Time of Encounter: 20:30 Assessment and Plan (1) Fall Current visit: No Status: Acute Generalized weakness and frequent falls - likely secondary to physical deconditioning and possibly due to polypharmacy PT/OT consult CT head - no acute intracranial abnormality Cervical spine CT - no acute abnormality X-ray pelvis - no acute abnormality Chest x-ray - cardiomegaly with no acute abnormalities EKG - sinus rhythm with no acute ST-T changes Troponin - negative, cycle troponin Milind telemetry, monitor closely Qualifiers: Encounter type: initial encounter Qualified Code(s): W19.XXXA - Unspecified fall, initial encounter (2) Physical deconditioning Current visit: No Status: Chronic Plan as above (3) CHF (congestive heart failure) Current visit: No Status: Chronic History of CHF, unspecified - not in exacerbation Continue home dose of Demadex, Coreg Chest x-ray - cardiomegaly otherwise no acute abnormalities BN peptide - 530 Cardiac telemetry, pulse ox, monitor closely Qualifiers: Congestive heart failure type: unspecified congestive heart failure type Congestive heart failure chronicity: unspecified congestive heart failure chronicity Qualified Code(s): I50.9 - Heart failure, unspecified (4) Diabetes Current visit: No Status: Chronic Diabetes mellitus type II, insulin-dependent, normoglycemia Continue glucose checks, sliding scale insulin Qualifiers: Diabetes mellitus type: type 2 Diabetes mellitus complication status: with neurologic complications Diabetes mellitus complication detail: with unspecified neuropathy Diabetes mellitus buttermaker continuous churn insulin use: with alf use Qualified Code(s): E11.40 - Type 2 diabetes mellitus with diabetic neuropathy, unspecified; Z79.4 - intermediate manager (current) use of insulin (5) Hx of myocardial infarction Current visit: No Status: Chronic History of MT, coronary artery disease - stable Continue aspirin, Brilinta, Zocor (6) DVT prophylaxis Current visit: Yes Status: Acute Continue heparin subcutaneous Internal Medicine - H&P: HPI Chief complaint: Generalized weakness, fall Admitted From: Emergency Dept Plans for Post Hospital Care: Home History of present illness: Ms. Beasley is a 81 year old female with past medical history of arthritis, cancer, CHF, COPD, diabetes, hypertension, coronary artery disease, anxiety and depression. Patient presents to the ED for generalized weakness and status post mechanical fall. Examined in the room. Patient is awake and alert. Not in any distress. Able to provide all history. No family members at bedside. Patient states she went to the bathroom earlier today and then fell backwards. She landed on the floor. She states she did not lose consciousness. Patient states she was on the floor for almost 20-25 minutes before help arrived. She denies chest pain or shortness of breath or palpitations. Denies headache or dizziness or abdominal pain or vomiting or diarrhea. She does complain of lower back pain and left hip pain. Pelvic x-ray is normal. Patient has no other acute complaints at this time. She states she does have frequent falls. She does have a history of thoracic spine compression fractures. She has also had a history of a pelvic fracture earlier this year. Initial workup in the ED is negative. Chest x-ray shows cardiomegaly but no other acute process. Troponin is negative. EKG shows sinus rhythm with no acute ST-T changes. The patient is being admitted for generalized weakness and frequent falls. There is also concern for hypoxia in the ED, but patient's O2 sat is 96% on room air. CODE STATUS full code. Past Med Surg Social Fam HX - Past Medical History Medical history: arthritis, cancer, CHF, COPD, diabetes, hypertension, myocardial infarction Psychiatric history: anxiety, depression - Past Surgical History Surgical History: cholecystectomy, herniorrhaphy, hip replacement, hysterectomy - Social History Smoking Status: Never smoker Smokeless Tobacco Status: No Alcohol use: none Drug use: none - Family History Father Living Status: Hx Family Cardiac Disorders: Yes Hx Family Endocrine Disorder: Yes (diabetic) Mother Living Status: Hx Family Endocrine Disorder: Yes (diabetes) Internal Medicine - H&P: Meds Allopurinol [Zyloprim 100 MG] 100 mg PO DAILY 12/15/16 [History] Aspirin Enteric Coated [Aspirin EC] 81 mg PO DAILY 12/15/16 [History] Carvedilol 3.125 mg PO BID 12/15/16 [History] Cholestyramine 4 gm PO HS 12/15/16 [History] Gabapentin [Neurontin] 600 mg PO TID 12/15/16 [History] HYDROcodone/Acet 5/325 mg [[place] 5-325 mg] 1 tab PO Q6H PRN 12/15/16 [History] Insulin ASPART [Novolog Flexpen] 0 unit SQ TIDWM 12/15/16 [History] Multivit-Minerals/Folic Acid [Centrum Multigummies] 80 mcg PO DAILY 12/15/16 [ History] Omeprazole [PriLOSEC] 20 mg PO DAILY 12/15/16 [History] Pravastatin Sodium [Pravachol] 40 mg PO HS #0 12/15/16 [History] Primidone [Mysoline] 50 mg PO BID 12/15/16 [History] Ticagrelor [Brilinta] 90 mg PO BID 12/15/16 [History] Torsemide [Demadex] 20 mg PO DAILY 12/15/16 [History] Venlafaxine HCl [Venlafaxine HCl ER] 150 mg PO DAILY 12/15/16 [History] clonazePAM [Klonopin] 0.5 mg PO HS #30 tab 12/16/16 [Rx] Colchicine/Probenecid [Probenecid-Colchicine Tabs] 1 each PO DAILY 07/10/17 [ History] Darifenacin Hydrobromide [Darifenacin ER] 15 mg PO DAILY 07/10/17 [History] Dulaglutide [Trulicity] 0.75 mg SQ QWEEK 07/10/17 [History] Fluticasone Propionate Nasal [Flonase] 50 mcg NS DAILY 07/10/17 [History] Insulin Glargine,Hum.rec.anlog [Lantus Solostar] 0 unit SQ HS 07/10/17 [History] Levothyroxine [Synthroid] 88 mcg PO 0630 07/10/17 [History] Loratadine [Claritin] 10 mg PO DAILY 07/10/17 [History] Metformin HCl [Metformin HCl ER] 2,000 mg PO QPM 07/10/17 [History] 3 Allergy/AdvReac Type Severity Reaction Status Date / Time morphine AdvReac See Verified 07/10/17 15:10 Comments All Systems PM: A 10-system review of systems was performed and is negative for pertinent findings except as documented above in the HPI. - Constitutional Constitutional: fatigue, weakness, no fever(s) - EENT Eyes: no blurry vision - Cardiovascular Cardiovascular ROS IM: lightheadedness, no chest pain, no diaphoresis, no dyspnea, no dyspnea on exertion, no edema, no orthopnea, no palpitations - Respiratory Respiratory: no cough, no dyspnea, no hemoptysis, no dyspnea on exertion, no wheezing, no chest congestion - Gastrointestinal Gastrointestinal: no abdominal pain, no bloating, no cramping, no diarrhea, no hematemesis, no hematochezia, no loose stools, no nausea, no vomiting - Genitourinary Genitourinary: no dysuria - Musculoskeletal Musculoskeletal ROS IM: back pain Additional comments: Left hip pain - Neurological Neurological ROS: no abnormal gait, no confusion, no dizziness, no loss of vision, no numbness, no tingling - Constitutional Vitals: Temp Pulse Resp BP Pulse Ox 98.3 F 78 14 161/78 99 07/10/17 15:03 07/10/17 19:53 07/10/17 20:08 07/10/17 20:08 07/10/17 19:54 General appearance: Present: cooperative, A&O X 3, pleasant, no acute distress, obese, answers questions appropriately - Head Head exam: Present: atraumatic - Eye Eye exam: Present: EOMI - ENT ENT exam: Present: mucous membranes moist - Respiratory Respiratory exam: Present: CTAB. Absent: accessory muscle use, rales, rhonchi, wheezes, tachypnea - Cardiovascular Cardiovascular exam: Present: RRR, +S1, +S2 - GI/Abdominal GI/Abdominal exam: Present: soft. Absent: distended, firm, guarding, tenderness - Extremities Exam Extremities exam: Present: pedal edema (Mild bilateral), radial pulses palpable and symmetrical. Absent: calf tenderness, cyanotic - Neurological Exam Neurological exam: Present: alert, oriented X3, no focal deficits. Absent: facial droop, speech deficit Internal Med - H&P Results - Labs CBC & Chem 7: 07/10/17 17:18 07/10/17 17:18
[2017-07-10] MEDS ORDERED: 0.9 % Sodium Chloride 1,000 ML IVC SCH (20:45)
[2017-07-10] MEDS ORDERED: Insulin LISPRO 300 UNITS/3 ML VIAL SQ SCH (21:00)
[2017-07-10] MEDS ORDERED: Cholestyramine 4 GM POWD.PACK PO SCH (21:00)
[2017-07-10] MEDS ORDERED: Insulin DETEMIR 100 UNIT/ML X5UNITS SQ SCH (21:45)
[2017-07-10 22:21] LABS: Prothrombin Time 11.1 Seconds (9.4-12.1)
[2017-07-10] MEDS: Primidone 50 MG TABLET PO SCH (22:58)
[2017-07-10] MEDS: Gabapentin 300 MG CAPSULE PO SCH (22:58)
[2017-07-10] MEDS: *HR* Ticagrelor 90 MG TABLET PO SCH (22:59)
[2017-07-11 01:26] LABS: Hemoglobin A1C 6.5 %
[2017-07-11 03:48] LABS: Calcium 10.3 mg/dL (8.6-10.8); Potassium 4.2 mEq/L (3.5-4.5)
[2017-07-11] MEDS ORDERED: Famotidine 20 MG/2 ML VIAL IVP SCH (06:00)
[2017-07-11] MEDS ORDERED: *HR* Heparin 5,000 UNIT/ML VIAL SQ SCH (06:00)
[2017-07-11] MEDS ORDERED: Aspirin Enteric Coated 81 MG Tablet PO SCH (09:00)
[2017-07-11] MEDS ORDERED: Torsemide 20 MG TABLET PO SCH (09:00)
[2017-07-11] MEDS ORDERED: Venlafaxine XR (24 HR) 150 MG CAP.ER.24H PO SCH (09:00)
[2017-07-11] MEDS ORDERED: Multivit/Ca/Min/Fe/FA 1 TAB TABLET PO SCH (09:00)
[2017-07-11] MEDS: Insulin LISPRO 300 UNITS/3 ML VIAL SQ SCH ×2 (10:03→13:02)
[2017-07-11] MEDS: Gabapentin 300 MG CAPSULE PO SCH ×2 (10:06→14:52)
[2017-07-11] MEDS: *HR* Ticagrelor 90 MG TABLET PO SCH (10:07)
[2017-07-11] MEDS: Primidone 50 MG TABLET PO SCH (10:07)
[2017-07-11 11:29] VITALS: BP 152/80
--- NOTE | 2017-07-11 14:25 | Discharge Summary ---
Date of Encounter: 07/11/17 Time of Encounter: 14:23 - Discharge Diagnosis (1) Physical deconditioning Priority: Primary Status: Chronic (2) Fall Priority: Primary Status: Acute Qualifiers: Encounter type: initial encounter Qualified Code(s): W19.XXXA - Unspecified fall, initial encounter (3) CAD (coronary artery disease) Priority: Secondary Status: Chronic Qualifiers: Coronary Disease-Associated Artery/Lesion type: [place] artery [place] vs. transplanted heart: [place] heart Associated angina: without angina Qualified Code(s): I25.10 - Atherosclerotic heart disease of [place] coronary artery without angina pectoris (4) CKD (chronic kidney disease) Priority: Secondary Status: Chronic Qualifiers: Chronic kidney disease stage: stage 3 (moderate) Qualified Code(s): N18.3 - Chronic kidney disease, stage 3 (moderate) (5) CHF (congestive heart failure) Priority: Secondary Status: Chronic Qualifiers: Congestive heart failure type: unspecified congestive heart failure type Congestive heart failure chronicity: chronic Qualified Code(s): I50.9 - Heart failure, unspecified (6) Diabetes Priority: Secondary Status: Chronic Qualifiers: Diabetes mellitus type: type 2 Diabetes mellitus complication status: with neurologic complications Diabetes mellitus complication detail: with unspecified neuropathy 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: with half-way use Qualified Code(s): E11.40 - Type 2 diabetes mellitus with diabetic neuropathy, unspecified; 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 - Discharge Medications Home Medications: Allopurinol [Zyloprim 100 MG] 100 mg PO DAILY 12/15/16 [History] Aspirin Enteric Coated [Aspirin EC] 81 mg PO DAILY 12/15/16 [History] Carvedilol 3.125 mg PO BID 12/15/16 [History] Cholestyramine 4 gm PO HS 12/15/16 [History] Gabapentin [Neurontin] 600 mg PO TID 12/15/16 [History] HYDROcodone/Acet 5/325 mg [Ryegate 5-325 mg] 1 tab PO Q6H PRN 12/15/16 [History] Insulin ASPART [Novolog Flexpen] 0 unit SQ TIDWM 12/15/16 [History] Multivit-Minerals/Folic Acid [Centrum Multigummies] 80 mcg PO DAILY 12/15/16 [ History] Omeprazole [PriLOSEC] 20 mg PO DAILY 12/15/16 [History] Pravastatin Sodium [Pravachol] 40 mg PO HS #0 12/15/16 [History] Primidone [Mysoline] 50 mg PO BID 12/15/16 [History] Ticagrelor [Brilinta] 90 mg PO BID 12/15/16 [History] Torsemide [Demadex] 20 mg PO DAILY 12/15/16 [History] Venlafaxine HCl [Venlafaxine HCl ER] 150 mg PO DAILY 12/15/16 [History] clonazePAM [Klonopin] 0.5 mg PO HS #30 tab 12/16/16 [Rx] Colchicine/Probenecid [Probenecid-Colchicine Tabs] 1 each PO DAILY 07/10/17 [ History] Darifenacin Hydrobromide [Darifenacin ER] 15 mg PO DAILY 07/10/17 [History] Dulaglutide [Trulicity] 0.75 mg SQ QWEEK 07/10/17 [History] Fluticasone Propionate Nasal [Flonase] 50 mcg NS DAILY 07/10/17 [History] Insulin Glargine,Hum.rec.anlog [Lantus Solostar] 0 unit SQ HS 07/10/17 [History] Levothyroxine [Synthroid] 88 mcg PO 0630 07/10/17 [History] Loratadine [Claritin] 10 mg PO DAILY 07/10/17 [History] Metformin HCl [Metformin HCl ER] 2,000 mg PO QPM 07/10/17 [History] Allergies/Adverse Reactions: 3 Allergy/AdvReac Type Severity Reaction Status Date / Time morphine AdvReac See Verified 07/10/17 15:10 Comments Procedures/tests Complete & Pending: Procedures Performed prior 72 hours Category Date Time Status ECG 12 lead ECG [ECG] AM 0600 Y 07/11/17 06:00 Completed Date of admission: 07/10/17 19:59 Primary care physician: Alden Mars DO Consults: 07/11/17 01:33 Consult to Occupational Therapy [CONS] Routine Comment: Evaluate, develop and implement POC Reason for Consult: Frequent falls, OT eval Consult to Physical Therapy [CONS] Routine Comment: Evaluate, develop and implement POC Reason for Consult: Frequent falls, PT eval Discharging clinician: Serena Jimenez Anticipated date of discharge: 07/11/17 - Patient Status Disposition: Home, Self-Care Condition: Good Functional capacity at discharge: uses cane/walker Overall status at discharge: patient is progressing back to baseline - Discharge Instructions Follow Up With: Alden Mars DO [Primary Care Provider] - 07/18/17 1:00 pm Additional Instructions: F/up with PCP in 1-2 weeks - Diet and Activity Activity: ambulate only with your walker, resume usual activities as tolerated Diet: diabetic diet, low fat, low cholesterol, low salt diet, other (renal diet) Hospital course: Ms. Beasley is a 81 year old female with the above medical problems admitted with generalized weakness and fall while at the doctor's office for pain management. She was noted to be mildly dehydrated and received IV hydration. No evidence of infection was noted. PT/OT evaluation was completed and patient was deemed safe to return to prior living situation and she was agreeable to this plan. She is otherwise medically stable. - Time Spent with Patient Total time spent providing and/or coordinating discharge services: Greater than 30 minutes (40 min) - Constitutional Vitals: Temp Pulse Resp BP Pulse Ox 98.4 F 83 15 152/80 95 07/11/17 11:28 07/11/17 11:28 07/11/17 11:28 07/11/17 11:28 07/11/17 11:28 General appearance: Present: A&O X 3, obese, answers questions appropriately - Respiratory Respiratory exam: Present: CTAB. Absent: accessory muscle use, rales, rhonchi, wheezes - Cardiovascular Cardiovascular exam: Present: RRR, +S1, +S2. Absent: diastolic murmur, gallop, rubs, systolic murmur
[2017-07-11] MEDS ORDERED: FLUARIX QUAD 2017-18 36MOS UP/PF 0.5 ML SYRINGE IM ONE (14:50)
--- NOTE | 2017-07-11 18:20 | Electrocardiograph Report ---
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
--- NOTE | 2017-07-11 18:31 | Electrocardiograph Report ---
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
== END 2017-07-11 15:49 | disposition home or self-care (01) ==
LOC: 3BNU 14:54 → EMEROO 14:54 → INTOOBSV 19:59 → 3BNU 20:01 → SUATTDRO 20:33
PROVIDERS: ADMIT Internal Medicine; ATTEND Internal Medicine

== ENCOUNTER 2020-01-24 20:06 | Inpatient (IN) ==
[2020-01-25] MEDS ORDERED: Naloxone 0.4 MG/ML INJ IVP PRN (00:31)
[2020-01-25] MEDS ORDERED: D5% in Water 1,000 ML IVC PRN (00:32)
[2020-01-25] MEDS ORDERED: Dextrose Gel 15 GM/37.5 ML TUBE PO PRN ×2 (00:32)
[2020-01-25] MEDS ORDERED: *HR* Dextrose 50 % in Water (Syg) 50 ML SYRINGE IVP PRN (00:32)
[2020-01-25] MEDS ORDERED: Ondansetron 4 MG/2 ML VIAL IVP PRN (01:08)
[2020-01-25 02:25] LABS: Basophils % 0.2 %; Eosinophils # 0.2 K/mcL (0.0-0.6); Eosinophils % 3.1 %; Hematocrit 25.7 % (35.3-44.9); Hemoglobin 7.6 g/dL (11.5-15.4); Immature Granulocytes % 0.2 % (0-4); Lymphocytes % 30.1 %; Mean Corpuscular HGB Conc 29.6 g/dL (31.6-35.5); Mean Corpuscular Hemoglobin 26.4 pg (28.0-33.3); Mean Corpuscular Volume 89.2 fL (83.0-100.0); Mean Platelet Volume 10.9 fL (9.4-12.4); Monocytes # 0.7 K/mcL (0.0-1.3); Monocytes % 10.8 %; Neutrophils # 3.6 K/mcL (1.6-8.9); Nucleated Red Blood Cells 0.3 /100 WBC (0); Platelet Count 229 K/mcL (140-400); Red Blood Count 2.88 M/mcL (3.82-4.97); Red Cell Distribution Width 15.5 % (11.5-14.5); Segmented Neutrophils % 55.6 %; White Blood Count 6.5 K/mcL (4.3-11.1)
[2020-01-25 02:38] LABS: Calcium 9.9 mg/dL (8.6-10.3); Potassium 3.9 mEq/L (3.5-5.1)
[2020-01-25] MEDS: Insulin LISPRO 300 UNITS/3 ML VIAL SQ SCH ×3 (06:21→17:13)
[2020-01-25] MEDS: Pantoprazole 40 MG VIAL IVP SCH ×2 (06:24→17:13)
[2020-01-25] MEDS ORDERED: Ipratropium/Albuterol Neb 3 ML IH PRN (07:29)
[2020-01-25] MEDS: carvediloL 6.25 MG TABLET PO SCH ×2 (07:58→16:24)
[2020-01-25] MEDS: Venlafaxine XR (24 HR) 150 MG CAP.ER.24H PO SCH (08:00)
[2020-01-25] MEDS ORDERED: D5% in 0.9% NACL 500 ML IVC SCH (11:30)
[2020-01-25 17:15] LABS: Hematocrit 26.7 % (35.3-44.9); Hemoglobin 7.9 g/dL (11.5-15.4)
[2020-01-25] MEDS ORDERED: D5% in 0.9% NACL 1,000 ML IVC SCH (21:30)
[2020-01-26] MEDS: Insulin LISPRO 300 UNITS/3 ML VIAL SQ SCH ×4 (00:58→17:29)
[2020-01-26 04:42] LABS: INR 1.2; Prothrombin Time 13.5 Seconds (9.4-12.1)
[2020-01-26 04:43] LABS: Basophils % 0.5 %; Eosinophils # 0.2 K/mcL (0.0-0.6); Eosinophils % 2.6 %; Hematocrit 25.8 % (35.3-44.9); Hemoglobin 7.5 g/dL (11.5-15.4); Immature Granulocytes % 0.2 % (0-4); Lymphocytes # 2.3 K/mcL (0.6-4.6); Lymphocytes % 37.6 %; Mean Corpuscular HGB Conc 29.1 g/dL (31.6-35.5); Mean Corpuscular Hemoglobin 25.7 pg (28.0-33.3); Mean Corpuscular Volume 88.4 fL (83.0-100.0); Mean Platelet Volume 10.7 fL (9.4-12.4); Monocytes # 0.7 K/mcL (0.0-1.3); Monocytes % 11.6 %; Neutrophils # 2.9 K/mcL (1.6-8.9); Platelet Count 237 K/mcL (140-400); Red Blood Count 2.92 M/mcL (3.82-4.97); Red Cell Distribution Width 15.7 % (11.5-14.5); Segmented Neutrophils % 47.5 %; White Blood Count 6.1 K/mcL (4.3-11.1)
[2020-01-26 04:59] LABS: Calcium 9.8 mg/dL (8.6-10.3); Magnesium 1.7 mg/dL (1.6-2.6); Phosphorous 2.7 mg/dL (2.7-4.5); Potassium 3.9 mEq/L (3.5-5.1)
[2020-01-26 05:17] LABS: Iron < 10 mcg/dL (50-170); Transferrin 339 mg/dL (203-362)
[2020-01-26] MEDS: Pantoprazole 40 MG VIAL IVP SCH ×2 (06:34→17:30)
[2020-01-26] MEDS: carvediloL 6.25 MG TABLET PO SCH ×2 (07:48→16:15)
[2020-01-26] MEDS: Venlafaxine XR (24 HR) 150 MG CAP.ER.24H PO SCH (07:49)
[2020-01-26] MEDS: Furosemide 20 MG/2 ML VIAL IVP SCH ×2 (07:52→16:09)
[2020-01-26] MEDS: Doxycycline 100 MG in 0.9 % Sodium Chloride Mini Bag 100 ML IVPB SCH ×2 (08:38→22:13)
[2020-01-26] MEDS ORDERED: *HR* Midazolam HCl 5 MG/5 ML VIAL IVP ONE ×2 (09:45→10:50)
[2020-01-26] MEDS ORDERED: *HR* FentaNYL (PF) 100 MCG/2 ML VIAL ONE (09:45)
[2020-01-26] MEDS ORDERED: *HR* FentaNYL (PF) 100 MCG/2 ML VIAL IVP ONE (10:50)
[2020-01-26] MEDS ORDERED: Perflutren Lipid Microsphere 1.3 ML in 0.9 % Sodium Chloride 8.7 ML IVP ONE (13:08)
[2020-01-27] MEDS: Insulin LISPRO 300 UNITS/3 ML VIAL SQ SCH ×5 (01:50→21:29)
[2020-01-27 05:19] LABS: Basophils % 0.3 %; Hemoglobin 7.8 g/dL (11.5-15.4); Immature Granulocytes % 0.2 % (0-4)
[2020-01-27 05:21] LABS: Eosinophils # 0.2 K/mcL (0.0-0.6); Eosinophils % 4.1 %; Hematocrit 26.2 % (35.3-44.9); Lymphocytes # 2.1 K/mcL (0.6-4.6); Lymphocytes % 35.8 %; Mean Corpuscular HGB Conc 29.8 g/dL (31.6-35.5); Mean Corpuscular Hemoglobin 26.7 pg (28.0-33.3); Mean Corpuscular Volume 89.7 fL (83.0-100.0); Mean Platelet Volume 10.1 fL (9.4-12.4); Monocytes # 0.7 K/mcL (0.0-1.3); Monocytes % 11.4 %; Neutrophils # 2.8 K/mcL (1.6-8.9); Platelet Count 228 K/mcL (140-400); Red Blood Count 2.92 M/mcL (3.82-4.97); Red Cell Distribution Width 15.9 % (11.5-14.5); Segmented Neutrophils % 48.2 %; White Blood Count 5.9 K/mcL (4.3-11.1)
[2020-01-27 05:40] LABS: Calcium 9.8 mg/dL (8.6-10.3); Magnesium 1.4 mg/dL (1.6-2.6); Potassium 3.6 mEq/L (3.5-5.1)
[2020-01-27] MEDS: Pantoprazole 40 MG VIAL IVP SCH ×2 (05:40→17:28)
[2020-01-27 06:15] LABS: Anisocytosis 1+ (Not Present)
[2020-01-27 06:18] LABS: Hypochromasia Present (Not Present); Platelet Estimate Normal (Normal); Polychromasia 1+ (Not Present)
[2020-01-27] MEDS: Furosemide 40 MG/4 ML VIAL IVP SCH ×2 (08:42→17:28)
[2020-01-27] MEDS: carvediloL 6.25 MG TABLET PO SCH ×2 (08:43→17:25)
[2020-01-27] MEDS: Venlafaxine XR (24 HR) 150 MG CAP.ER.24H PO SCH (08:43)
[2020-01-27] MEDS: Doxycycline 100 MG in 0.9 % Sodium Chloride Mini Bag 100 ML IVPB SCH ×2 (10:36→21:30)
[2020-01-27] MEDS ORDERED: Dexamethasone 4 MG/ML VIAL ONE (12:33)
[2020-01-27] MEDS ORDERED: Lidocaine -MPF 2% 2 ML VIAL ONE (12:33)
[2020-01-27] MEDS ORDERED: *HR* Propofol 200 MG/20 ML VIAL IVP ONE ×2 (12:33→12:50)
[2020-01-27] MEDS ORDERED: Ondansetron 4 MG/2 ML VIAL ONE (12:33)
[2020-01-27] MEDS ORDERED: D5% in Water 1,000 ML IVC PRN (15:39)
[2020-01-27] MEDS ORDERED: Dextrose Gel 15 GM/37.5 ML TUBE PO PRN ×2 (15:39)
[2020-01-27] MEDS ORDERED: *HR* Dextrose 50 % in Water (Syg) 50 ML SYRINGE IVP PRN (15:39)
[2020-01-27] MEDS: Primidone 50 MG TABLET PO SCH (21:28)
[2020-01-28 04:54] LABS: Hematocrit 24.7 % (35.3-44.9); Hemoglobin 7.4 g/dL (11.5-15.4)
[2020-01-28 05:13] LABS: Calcium 9.7 mg/dL (8.6-10.3); Magnesium 1.2 mg/dL (1.6-2.6); Phosphorous 3.4 mg/dL (2.7-4.5); Potassium 3.6 mEq/L (3.5-5.1)
[2020-01-28] MEDS: Pantoprazole 40 MG VIAL IVP SCH (05:35)
[2020-01-28] MEDS ORDERED: 0.9 % Sodium Chloride 250 ML IVC SCH (07:30)
[2020-01-28] MEDS: Insulin LISPRO 300 UNITS/3 ML VIAL SQ SCH ×4 (07:43→20:21)
[2020-01-28] MEDS: Primidone 50 MG TABLET PO SCH ×2 (07:55→20:20)
[2020-01-28] MEDS: lisinopriL 5 MG TABLET PO SCH (07:56)
[2020-01-28] MEDS: carvediloL 6.25 MG TABLET PO SCH ×2 (07:57→16:15)
[2020-01-28] MEDS: Venlafaxine XR (24 HR) 150 MG CAP.ER.24H PO SCH (08:05)
[2020-01-28] MEDS: Doxycycline 100 MG CAPSULE PO SCH ×2 (09:58→20:20)
[2020-01-28] MEDS ORDERED: Acetaminophen 325 MG TABLET PO PRN (15:42)
[2020-01-28 18:28] LABS: Hematocrit 28.9 % (35.3-44.9); Hemoglobin 8.9 g/dL (11.5-15.4)
[2020-01-28] MEDS: Insulin DETEMIR 100 UNIT/ML X5UNITS SQ SCH (20:20)
[2020-01-28] MEDS: *HR* Ticagrelor 90 MG TABLET PO SCH (20:20)
[2020-01-28] MEDS: Magnesium Oxide 400 MG TABLET PO SCH (20:20)
[2020-01-29 06:42] LABS: Hematocrit 26.6 % (35.3-44.9); Hemoglobin 8.3 g/dL (11.5-15.4)
[2020-01-29 06:52] LABS: Calcium 9.8 mg/dL (8.6-10.3); Magnesium 1.5 mg/dL (1.6-2.6); Potassium 3.8 mEq/L (3.5-5.1)
[2020-01-29] MEDS: carvediloL 6.25 MG TABLET PO SCH ×2 (07:31→16:46)
[2020-01-29] MEDS: Doxycycline 100 MG CAPSULE PO SCH ×2 (07:31→21:31)
[2020-01-29] MEDS: *HR* Ticagrelor 90 MG TABLET PO SCH ×2 (07:31→21:31)
[2020-01-29] MEDS: Aspirin Enteric Coated 81 MG Tablet PO SCH (07:31)
[2020-01-29] MEDS: Magnesium Oxide 400 MG TABLET PO SCH (07:32)
[2020-01-29] MEDS: Venlafaxine XR (24 HR) 150 MG CAP.ER.24H PO SCH (07:32)
[2020-01-29] MEDS: lisinopriL 5 MG TABLET PO SCH (07:32)
[2020-01-29] MEDS: Primidone 50 MG TABLET PO SCH ×2 (07:32→21:31)
[2020-01-29] MEDS: Furosemide 40 MG/4 ML VIAL IVP SCH (07:33)
[2020-01-29] MEDS: Insulin DETEMIR 100 UNIT/ML X5UNITS SQ SCH (07:36)
[2020-01-29] MEDS: Insulin LISPRO 300 UNITS/3 ML VIAL SQ SCH ×3 (07:37→16:45)
[2020-01-29] MEDS ORDERED: Cholestyramine 4 GM POWD.PACK PO SCH (21:00)
[2020-01-30 04:55] LABS: Basophils % 0.3 %; Eosinophils # 0.3 K/mcL (0.0-0.6); Eosinophils % 4.3 %; Hematocrit 28.9 % (35.3-44.9); Immature Granulocytes % 0.3 % (0-4); Lymphocytes # 2.7 K/mcL (0.6-4.6); Lymphocytes % 34.4 %; Mean Corpuscular HGB Conc 31.1 g/dL (31.6-35.5); Mean Corpuscular Hemoglobin 26.3 pg (28.0-33.3); Mean Corpuscular Volume 84.5 fL (83.0-100.0); Mean Platelet Volume 10.5 fL (9.4-12.4); Monocytes # 0.8 K/mcL (0.0-1.3); Monocytes % 10.7 %; Neutrophils # 3.9 K/mcL (1.6-8.9); Platelet Count 247 K/mcL (140-400); Red Blood Count 3.42 M/mcL (3.82-4.97); Red Cell Distribution Width 16.1 % (11.5-14.5); White Blood Count 7.9 K/mcL (4.3-11.1)
[2020-01-30 05:20] LABS: Calcium 10.2 mg/dL (8.6-10.3); Potassium 3.7 mEq/L (3.5-5.1)
[2020-01-30 08:34] LABS: Estimated Average Glucose 151 mg/dl
[2020-01-30] MEDS: Doxycycline 100 MG CAPSULE PO SCH (08:36)
[2020-01-30] MEDS: *HR* Ticagrelor 90 MG TABLET PO SCH (08:37)
[2020-01-30] MEDS: carvediloL 6.25 MG TABLET PO SCH (08:37)
[2020-01-30] MEDS: Aspirin Enteric Coated 81 MG Tablet PO SCH (08:37)
[2020-01-30] MEDS: Venlafaxine XR (24 HR) 150 MG CAP.ER.24H PO SCH (08:37)
[2020-01-30] MEDS: Primidone 50 MG TABLET PO SCH (08:39)
[2020-01-30] MEDS: Insulin LISPRO 300 UNITS/3 ML VIAL SQ SCH ×2 (08:39→12:21)
[2020-01-30] MEDS ORDERED: Insulin DETEMIR 100 UNIT/ML X5UNITS SQ SCH (09:00)
[2020-01-30] MEDS ORDERED: Cyanocobalamin (B-12) 1,000 MCG TABLET PO SCH (09:00)
[2020-01-30] MEDS ORDERED: amLODIPine 5 MG TABLET PO SCH (09:00)
[2020-01-30] MEDS: Furosemide 40 MG/4 ML VIAL IVP SCH (09:13)
[2020-01-30 10:50] VITALS: BP 161/78
== END 2020-01-30 14:52 | disposition home or self-care (01) | DRG 393 ==
LOC: 3ANU → SUATTDRO 22:31
PROVIDERS: ADMIT Internal Medicine; ATTEND Pharmacist